=== PATIENT | female | born 1975 | race Caucasian/White ===

== ENCOUNTER 2021-03-06 06:14 | Emergency (ER) | payer BC ==
[~2021-03-06 06:14] MED LIST: FLOVENT 220.1 GM/INH INH; NASONEX17 GM; PROAIR DIGIHAL90 MCG INH; TESSALON PERLE100 MG PO
[2021-03-06 06:57] LABS: HEMOGLOBIN 12.6 gm/dl (12.3-15.3); RED BLOOD COUNT 4.25 M/UL (4.00-5.10); WHITE BLOOD COUNT 8.7 K/UL (4.5-11.0)
[2021-03-06 07:32] LABS: BUN/CREATININE RATIO 23 (0-10)
[2021-03-06] MEDS ORDERED: ZOFRAN 4 MG TAB4 MG PO (09:19)
== END 2021-03-06 10:06 | disposition home or self-care (01) ==
LOC: ER1 06:14
PROVIDERS: Physician Assistant
DX: K52.9 Noninfective gastroenteritis and colitis, unspecified (principal); R55 Syncope and collapse; E11.9 Type 2 diabetes mellitus without complications; Z79.82 Long term (current) use of aspirin; Z88.1 Allergy status to other antibiotic agents; Z20.822 Contact with and (suspected) exposure to COVID-19
CPT/HCPCS: 0240U; 70450; 80053; 81001; 82272; 82550; 82553; 83605; 83690; 83874; 84484; 85025; 85610; 87086; 93005; 96374; 96375; 99284; C9113; J2060; J2405; Q9967